=== PATIENT | female | born 1965 | race Caucasian/White ===

== ENCOUNTER 2020-03-11 14:04 | Emergency (ER) | payer MEDICAID ==
[2020-03-11 14:13] VITALS: BP 104/64
--- NOTE | 2020-03-11 14:36 | ED Physician Documentation ---
PD HPI OPHTHO - Stated complaint Stated Complaint: RT EYE PX - Chief complaint Chief Complaint: Heent - History obtained from History obtained from: Patient (She is a 1 month history of foreign body sensation in the right eye that was today after messing with it a lot. No visual deficit. She does wear contacts but has not been wearing them too much lately.) Review of Systems Constitutional: denies: Fever, Chills Eyes: reports: Irritation. denies: Loss of vision, Decreased vision, Photophobia Ears: denies: Loss of hearing, Ear pain Nose: denies: Rhinorrhea / runny nose PD PAST MEDICAL HISTORY - Present Medications Home Medications: Ambulatory Orders Medication Instructions Recorded Confirmed Tobramycin/Dexamethasone [Tobradex 1 drops RIGHTEYE QID #1 drops.susp 03/11/20 Eye Drops] - Allergies Allergies/Adverse Reactions: Allergies Allergy/AdvReac Type Severity Reaction Status Date / Time No Known Drug Allergies Allergy Verified 03/11/20 14:13 PD ED PE NORMAL - Vitals Vital signs reviewed: Yes - General General: Alert and oriented X 3, No acute distress - HEENT HEENT: PERRL, EOMI, Other (She has skating rink type scratches with fluorescein uptake on the inferior part of the cornea. Negative Tristan sign. No obvious foreign body on the cornea nor in the fornices.) Results - Vitals Vitals: Vital Signs - 24 hr 03/11/20 14:10 Temperature 36.5 C Heart Rate 67 Respiratory 16 Rate Blood Pressure 104/64 O2 Saturation 98 Oxygen O2 Source Room air PD MEDICAL DECISION MAKING - ED course ED course: Given the time course and heavy pollen count last week I suspect what happened is she developed an allergic conjunctivitis that was then exacerbated and she scratched herself, I do not see any persistent foreign body. Departure - Departure Disposition: 01 Home, Self Care Clinical Impression: Allergic conjunctivitis Qualifiers: Laterality: right Qualified Code(s): H10.11 - Acute atopic conjunctivitis, right eye Condition: Good Record reviewed to determine appropriate education?: Yes Instructions: ED Allergic Conjunctivitis Follow-Up: Herb Hopkins MD [Provider Admit Priv/Credential] - Prescriptions: Tobramycin/Dexamethasone [Tobradex Eye Drops] 1 drops RIGHTEYE QID #1 drops.susp Comments: Do not wear your contact lenses until 1 of 2 things happens, either you are completely better and another week has passed, or the eye doctor feels it is safe to do so. Return for new or worsening symptoms. Follow-up with the leg man next week if not better. Do not use the eyedrops for more than a week without consulting the leg man.
== END 2020-03-11 14:39 | disposition home or self-care (01) ==
LOC: ED 14:04
DX: S05.01XA Injury of conjunctiva and corneal abrasion without foreign body, right eye, initial encounter (principal); X58.XXXA Exposure to other specified factors, initial encounter; H10.11 Acute atopic conjunctivitis, right eye
CPT/HCPCS: 99282; 99283